=== PATIENT | male | born 1955 | race Caucasian/White ===

== ENCOUNTER 2023-08-14 18:06 | Emergency (ER) | payer MEDICARE, SELFPAY ==
[2023-08-14 18:09] VITALS: BP 189/88
[2023-08-14 18:27] LABS: % Basophils 0.6 % (0-2); % Eosinophils 2.1 % (0-6); % Immature Granulocytes 0.4 % (0-0.5); % Monocytes 11.7 % (1.7-9.3); % Neutrophils 60.2 % (42.2-75.2); Absolute Basophils 0.1 10^3/uL (0-0.2); Absolute Eosinophils 0.2 10^3/uL (0-0.7); Absolute Lymphocytes 2.7 10^3/uL (1.2-3.4); Absolute Monocytes 1.3 10^3/uL (0.1-0.6); Absolute Neutrophils 6.5 10^3/uL (1.4-6.5); Hemoglobin 15.2 g/dL (13.0-18.0); Mean Corp Hgb Conc. 36.2 g/dL (33.0-37.0); Mean Corpuscular Hgb 30.3 pg (27.0-31.0); Mean Corpuscular Volume 83.8 fL (80.0-94.0); Mean Platelet Volume 10.2 fL (7.4-10.4); Nucleated Red Blood Cells % 0 % (-); Platelet Count 188 10^3/uL (130-400); Red Blood Cell Count 5.01 10^6/uL (4.70-6.10); Red Cell Dist. Width 12.7 % (11.5-14.5); White Blood Cell Count 10.8 10^3/uL (4.8-10.8)
[2023-08-14 18:47] LABS: ALT (SGPT) 30 U/L (0-50); AST (SGOT) 33 U/L (17-59); Albumin 4.4 g/dl (3.5-5.0); Alkaline Phosphatase 47 U/L (38-126); Blood Urea Nitrogen 23 mg/dl (9-20); Calcium 9.9 mg/dl (8.4-10.2); Carbon Dioxide 29 mmol/L (22-30); Chloride 92 mmol/L (98-107); Glucose 222 mg/dl (70-99); Potassium 3.4 mmol/L (3.5-5.1); Sodium 130 mmol/L (135-145); Total Bilirubin 0.6 mg/dl (0.2-1.3); Total Protein 7.2 g/dl (6.3-8.2); eGFR > 60.00
[2023-08-14 18:52] LABS: NT-proBNP 46.1 pg/ml; Troponin I < 0.012 ng/ml
[2023-08-14 21:01] VITALS: BP 157/70
[2023-08-14] MEDS: KCL 40 MEQ PO (21:45)
[2023-08-14] MEDS: NSS 1000 IV (21:53)
--- NOTE | 2023-08-14 21:54 | ED.GENMED ---
History of Present Illness
General
Chief Complaint: Cardiac Symptoms
Source: patient and family
Time Seen by Provider: 08/14/23 21:13
Nursing documentation reviewed up to this point in time: agreed with
Travel History
Have you had any contact with someone who has COVID-19?: No
Do you have any symptoms of coronavirus? Fever > 100 degrees, chills, cough, shortness of breath, sore throat, loss of taste or smell, muscle aches, or headache?: No
History of Present Illness
History of Present Illness:
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
mass spec he drinks alcohol fairly frequently, his brother had a cardiac stent mother had a stroke, no vomiting, no fever chills
Past History
Past History
ED Past Medical History: HTN and Hypercholesterolemia
ED Past Surgical History: Negative Appendectomy or Cardiac
Social History
Tobacco: Non-smoker
Alcohol: Occasional
Drug: None
Personal:
Living: with family
Employment: Employed
Family History
Family History: CAD and Other (Mother with a stroke)
Review of Systems
Review of Systems
All Other Systems: Not applicable
Constitutional: Denies fever or fatigue
EENT: Reports no symptoms
Respiratory: Reports no symptoms
Cardiac: Reports palpitations
ABD/GI: Reports anorexia (Belching ); Denies abdominal pain
: Reports no symptoms
Musculoskeletal: Reports no symptoms
Phy Exam
Physical Exam
Physical Exam:
Physical Exam
General: no apparent distress, not acutely ill
Neck: No jaundice
Heart: s1/s2 regular rate and rhythm, no murmur. equal radial pulses.
Lungs: no acute respiratory distress. clear bilaterally
Abdomen: Soft nontender
Neuro: alert and oriented. no focal neurological deficits
Skin: no rash
Psychiatric: well kept. interactive and cooperative
Extremities: no edema. no calf tenderness.
Course
Orders/Labs/Results
Orders:
Orders
08/14/23 18:12
Electrocardiogram (*1) Urgent
Reason for Study: Shortness of Breath
08/14/23 18:13
EKG- Treatment ONCE
08/14/23 18:20
Complete Blood Count/With Diff Urgent
Comprehensive Metabolic Panel Urgent
Magnesium Urgent
NT-proBNP Urgent
Troponin I Urgent
08/14/23 21:21
0.9% Sodium Chloride 1000 ml [Nss] 1,000 ml IV BOLUS
Potassium Chloride [KCl] 40 meq PO NOW STA
08/14/23 21:22
Add On- LAB Urgent
Tests Added?: magnesium
08/14/23 22:24
Troponin I Urgent
Abnormal Lab Results
08/14/23
18:20
Absolute Monos (auto) 1.3 H 10^3/uL
(0.1-0.6)
Monocytes % 11.7 H %
(1.7-9.3)
Sodium 130 L mmol/L
(135-145)
Potassium 3.4 L mmol/L
(3.5-5.1)
Chloride 92 L mmol/L
(98-107)
BUN 23 H mg/dl
(9-20)
Glucose 222 H mg/dl
(70-99)
08/14/23 18:20
08/14/23 18:20
Vital Signs
Initial and Last Documented VS:
Initial Vital Signs
Temp Pulse Resp BP Pulse Ox
98.3 F 72 20 189/88 98
08/14/23 18:09 08/14/23 18:09 08/14/23 18:09 08/14/23 18:09 08/14/23 18:09
Last Documented Vital Signs
Temp Pulse Resp BP Pulse Ox
98.3 F 61 14 166/76 95
08/14/23 18:09 08/14/23 22:25 08/14/23 22:25 08/14/23 22:25 08/14/23 22:25
MDM/Problems Addressed
Differential Diagnosis Includes:
Arrhythmia dehydration
Electrolyte abnormality doubt ACS
MDM/Problems Addressed:
Belching popliteal
Chronic conditions affecting care:
Question LGL's
Chronic conditions affecting care: HTN
Acute Exacerbation and/or Progression of Chronic Illness: HTN
*Radiology
Radiology exam reviewed: preliminary read by ED provider
*Pulse Oximetry
Patient hypoxic: no
*EKG
Interpreted by ED Provider?: Yes
Interpretation: abnormal
Comparison EKG: no comparison EKG present
Heart Rate: 78
Rate: normal
Rhythm: sinus
Ischemia: other (PVCs)
*Painter Sign Maintenance Interpretation
Rate: normal
Interpretation: normal
Heart Rate: 78
Rhythm: sinus
*Critical Care Note
Total Time (30-74mins, 75-104mins- exclusive of procedures): Not Applicable
Data Reviewed
Source: patient and spouse
Prescriptions/Medications Considered But Not Given:
Aspirin
Further Testing Considered But Not Given:
Echo not available at this
Update Note
Update Note:
10 PM, etiology is elusive LGL was reviewed on up-to-date unclear from my review of EKG if he has elicits a short NV preexcitation syndrome, makes him prone to have AVNRT, he does have what looks like some volume contraction hypokalemia we will
replete his electrolytes start saline check magnesium
11 PM second troponin noted patient appears stable plan of care with him will refer to cardiology
ED Attending Note
-
Portions of this chart may have been created with voice recognition software.� Occasional wrong word or��sound alike� substitutions may have occurred due to the inherent limitations of voice recognition software.
Discharge Plan
Departure
Referrals:
Michael Chavez MD [Family Provider] -
Interventions
Interventions:
*Risk Screen - Suicide Last Done: 08/14/23 18:09
*General Assessment Last Done: 08/14/23 18:09
ED- Pulmonary Assessment Last Done: 08/14/23 21:05
ED- Cardiac Assessment Last Done: 08/14/23 21:05
[2023-08-14 21:55] LABS: Magnesium 1.8 mg/dl (1.6-2.3)
[2023-08-14 22:25] VITALS: BP 166/76
[2023-08-14 22:54] LABS: Troponin I < 0.012 ng/ml
[2023-08-14 23:00] VITALS: BP 156/76
== END 2023-08-14 23:26 | disposition home or self-care (01) ==
LOC: EMR 18:06
PROVIDERS: Emergency Medicine; EMERGENCY PHYSICIAN Emergency Medicine; FAMILY PHYSICIAN Internal Medicine
DX: R00.2 Palpitations (principal); I10 Essential (primary) hypertension; E78.00 Pure hypercholesterolemia, unspecified; Z82.3 Family history of stroke; Z82.49 Family history of ischemic heart disease and other diseases of the circulatory system; Z90.49 Acquired absence of other specified parts of digestive tract
CPT/HCPCS: 99283; 96360; 80053; 83735; 83880; 84484; 85025; 93005

== ENCOUNTER 2023-08-18 18:52 | Emergency (ER) | payer MEDICARE, SELFPAY ==
[2023-08-18 19:15] LABS: % Basophils 0.4 % (0-2); % Immature Granulocytes 0.4 % (0-0.5); % Lymphocytes 23.5 % (20.5-51.1); % Monocytes 10.8 % (1.7-9.3); % Neutrophils 62.9 % (42.2-75.2); Absolute Basophils 0.1 10^3/uL (0-0.2); Absolute Eosinophils 0.2 10^3/uL (0-0.7); Absolute Lymphocytes 2.7 10^3/uL (1.2-3.4); Absolute Monocytes 1.2 10^3/uL (0.1-0.6); Absolute Neutrophils 7.1 10^3/uL (1.4-6.5); Hematocrit 44.3 % (39.0-52.0); Hemoglobin 15.9 g/dL (13.0-18.0); Mean Corp Hgb Conc. 35.9 g/dL (33.0-37.0); Mean Corpuscular Hgb 30.1 pg (27.0-31.0); Mean Corpuscular Volume 83.7 fL (80.0-94.0); Mean Platelet Volume 10.2 fL (7.4-10.4); Nucleated Red Blood Cells % 0 % (-); Platelet Count 198 10^3/uL (130-400); Red Blood Cell Count 5.29 10^6/uL (4.70-6.10); Red Cell Dist. Width 12.8 % (11.5-14.5); White Blood Cell Count 11.3 10^3/uL (4.8-10.8)
[2023-08-18 19:34] LABS: ALT (SGPT) 34 U/L (0-50); AST (SGOT) 35 U/L (17-59); Albumin 4.5 g/dl (3.5-5.0); Alkaline Phosphatase 44 U/L (38-126); Blood Urea Nitrogen 22 mg/dl (9-20); Calcium 9.9 mg/dl (8.4-10.2); Carbon Dioxide 30 mmol/L (22-30); Chloride 93 mmol/L (98-107); Glucose 162 mg/dl (70-99); Potassium 3.6 mmol/L (3.5-5.1); Sodium 132 mmol/L (135-145); Total Bilirubin 0.5 mg/dl (0.2-1.3); Total Protein 7.4 g/dl (6.3-8.2); eGFR > 60.00
[2023-08-18 19:37] LABS: Troponin I < 0.012 ng/ml
--- NOTE | 2023-08-18 21:25 | ED.GENMED ---
History of Present Illness
General
Chief Complaint: Heart Rate Problem
Source: patient and other (Significant other)
Time Seen by Provider: 08/18/23 20:54
Travel History
Have you had any contact with someone who has COVID-19?: No
Do you have any symptoms of coronavirus? Fever > 100 degrees, chills, cough, shortness of breath, sore throat, loss of taste or smell, muscle aches, or headache?: No
History of Present Illness
History of Present Illness:
This patient is a 68-year-old male who says that he felt perfectly well when he woke up this morning. Then, around 6 PM, shortly after dinner he developed a feeling of 'indigestion' feeling like he needed to burp associated with the feeling like
his heart was beating 'harder and irregular'. His partner, who is a nurse, checked his pulse with him and she describes it as 'bounding' and irregular. This lasted until patient arrived here. He denies symptoms at this time. He denies associated
chest pain or pressure, dyspnea, dizziness, fever, chills, nausea, vomiting, back pain. He does admit to drinking caffeine every day. He admits to taking Sudafed this week. Patient was here on Monday with the same symptoms, although at that time
it was more prolonged and associated with mild dizziness. Current completed and patient has follow-up with cardiology in the next 3 weeks.
Past History
Past History
ED Past Medical History: HTN, Hypercholesterolemia and NIDDM
ED Past Surgical History: Tonsilectomy; Negative Appendectomy or Cardiac
Social History
Tobacco: Smoker
Alcohol: Occasional
Drug: None
Personal: Partner
Employment: Employed
Family History
Family History: CAD and Other (Mother with a stroke)
Phy Exam
Physical Exam
Physical Exam:
GENERAL: Alert , in no apparent distress
EYE: pupils equal and reactive
NECK: Supple, no significant adenopathy.
ENT: o/p clr, mmm.
CARDIAC: Regular rate and rhythm .
LUNGS: Clear breath sounds bilaterally, no acute respiratory distress, no wheezes/rales/rhonchi
ABDOMEN: Soft, without focal tenderness, no r/g, no cvat
NEUROLOGICAL: Alert and oriented, no focal neuro deficits
SKIN: Warm and dry, skin intact.
MUSCULOSKELETAL: No edema, well perfused.
PSYCH: Normal and appropriate interaction.
Course
Orders/Labs/Results
Orders:
Orders
08/18/23 18:56
EKG [Electrocardiogram (*1)] Urgent
Reason for Study: Palpitations
EKG- Treatment ONCE
08/18/23 19:08
CBC/With Diff [Complete Blood Count/With Diff] Urgent
CMP [Comprehensive Metabolic Panel] Urgent
TSH Urgent
Comment: ADD ON
Troponin I Urgent
08/18/23 21:24
Add On- LAB Urgent
Tests Added?: tsh
Abnormal Lab Results
08/18/23
19:08
WBC 11.3 H 10^3/uL
(4.8-10.8)
Absolute Neuts (auto) 7.1 H 10^3/uL
(1.4-6.5)
Absolute Monos (auto) 1.2 H 10^3/uL
(0.1-0.6)
Monocytes % 10.8 H %
(1.7-9.3)
Sodium 132 L mmol/L
(135-145)
Chloride 93 L mmol/L
(98-107)
BUN 22 H mg/dl
(9-20)
Glucose 162 H mg/dl
(70-99)
08/18/23 19:08
08/18/23 19:08
Vital Signs
Initial and Last Documented VS:
Initial Vital Signs
Pulse Resp BP Pulse Ox
67 12 168/80 98
08/18/23 21:45 08/18/23 21:45 08/18/23 21:45 08/18/23 21:45
Last Documented Vital Signs
Pulse Resp BP Pulse Ox
67 12 168/80 97
08/18/23 21:45 08/18/23 21:45 08/18/23 21:45 08/18/23 21:46
*Critical Care Note
Total Time (30-74mins, 75-104mins- exclusive of procedures): Not Applicable
Update Note
Update Note:
Patient presents to the Emergency Department with ____palpitations/irregular heartbeat and indigestion feeling
Number and Complexity of Problems Addressed at the Encounter
� Chronic conditions affecting care:
� Acute Exacerbation and/or Progression of Chronic Illness:
� Differential Diagnosis includes: But not limited to SVT, A-fib, atrial tach, reflux, ACS, etc. etc.
Amount and/or Complexity of Data to be Reviewed and Analyzed
� I performed an independent evaluation of and my interpretation is:
EKG: Read by me, normal sinus rhythm with PACs, no acute ischemia
CT:
Xrays:
Laboratory Studies: Generally unremarkable, TSH pending
Other:
� Review of other/old records reveals: Mondays ER record reviewed
� Clinical information was obtained by an independent historian: Patient's partner who is also an RN and is at bedside
� Prescriptions/Medications Considered but not given:
� Further testing considered but not performed:
Risk of Complications and/or Morbidity or Mortality of Patient Management
� Social determinants of health affecting care:
� Discussion with other providers (PCP, Hospitalists, Consultants, etc):
� Escalation of care including admission/observation vs risk of discharge considered: Long discussion with patient regarding importance of avoiding stimulants such as caffeine, tobacco, alcohol. He also reports that he was
taking Sudafed recently. He has remained asymptomatic here in the emergency department, no significant arrhythmias noted. I reviewed his ECG with him, discussed with him vagal maneuvers, importance of follow-up, and reasons to return to the ER.
Suspect atrial arrhythmia, could be simply PACs, SVT, etc.
ED Attending Note
-
Portions of this chart may have been created with voice recognition software.� Occasional wrong word or��sound alike� substitutions may have occurred due to the inherent limitations of voice recognition software.
Discharge Plan
Departure
Patient Disposition: Home (Routine Discharge)
Date of Disposition: 08/18/23
Time of Disposition: 22:37
Patient with high blood pressure during this ER visit?: Yes
Condition: Good
Discharge Problem:
Heart palpitations
Instructions: Palpitations (DC), BLOOD PRESSURE
Prescriptions:
No Action
potassium chloride 10 mEq capsule, extended release
10 meq PO BID Qty: 8 0RF
Referrals:
UNKNOWN - PT DOES,NOT KNOW [Unknown Provider] -
Activity Restrictions/Additional Instructions:
PLEASE AVOID ANY STIMULANTS SUCH CAFFEINE, ALCOHOL, TOBACCO, ETC. IF YOU DEVELOP RECURRENT/NEW PALPITATIONS, FEVER, VOMITING, DIZZINESS, CHEST PAIN, TROUBLE BREATHING, OR OTHER WORRISOME SIGNS, GO TO THE ER IMMEDIATELY! SEE YOUR PROPOSAL LEAD WRITER
SCHEDULED.
Interventions
Interventions:
*Risk Screen - Suicide Last Done: 08/18/23 21:46
*General Assessment Last Done: 08/18/23 18:57
*Neglect/Abuse Screening Last Done: 08/18/23 21:46
ED- Fall Risk Assessment Last Done: 08/18/23 21:46
*ED COVID-19 Vaccine History Last Done: 08/18/23 18:57
ED- Cardiac Assessment Last Done: 08/18/23 21:46
ED- Pulmonary Assessment Last Done: 08/18/23 21:46
[2023-08-18 21:45] VITALS: BP 168/80; BMI 24.5
[2023-08-18 22:00] VITALS: BP 150/87
[2023-08-19 00:45] LABS: TSH 2.34 uIU/ml (0.47-4.68)
== END 2023-08-18 22:55 | disposition home or self-care (01) ==
LOC: EMR 18:52
PROVIDERS: EMERGENCY PHYSICIAN Emergency Medicine; FAMILY PHYSICIAN Internal Medicine
DX: R00.2 Palpitations (principal); I10 Essential (primary) hypertension; E78.00 Pure hypercholesterolemia, unspecified; E11.9 Type 2 diabetes mellitus without complications; F17.200 Nicotine dependence, unspecified, uncomplicated; Z82.3 Family history of stroke; Z82.49 Family history of ischemic heart disease and other diseases of the circulatory system; Z90.49 Acquired absence of other specified parts of digestive tract
CPT/HCPCS: 99283; 80053; 84443; 84484; 85025; 93005

== ENCOUNTER → 2023-10-12 07:52 | Outpatient (REF) | payer MEDICARE, SELFPAY | LOC: DHCBC/DCA 07:52 | PROVIDERS: ATTENDING PHYSICIAN Internal Medicine Cardiovascular Disease; FAMILY PHYSICIAN Internal Medicine | DX: R07.9 Chest pain, unspecified (principal); R00.2 Palpitations | CPT/HCPCS: 78452; 93017; A9500; J2785 ==